=== PATIENT | male | born 1985 | race Caucasian/White ===

== ENCOUNTER 2020-04-14 12:25 | Emergency (ER) | payer OTHER, SELFPAY ==
[2020-04-14 12:26] VITALS: BP 149/92; PULSE 86; RESP 18; TEMP 36.9; O2SAT 97; BMI 33.2
--- NOTE | 2020-04-14 12:40 | HMH.EDGENADL ---
ED Disposition Clinical Impression: Bronchitis Disposition: Home, Self-Care Condition on Discharge: Good Additional Instructions: Take antibiotic as prescribed. Please drink plenty of clear fluids and use Sudafed, decongestant. Return immediately if any recurrent shortness of air, high fever/chills, generalized malaise, or other new concerning symptoms. Prescriptions: Azithromycin [Z-Angel 250mg Tab*] 250 mg PO UD DOSE PK #6 tab Transmission Status: Pending to [id number] Referrals: Ki Alcocer [Primary Care Provider] - - Critical Care Critical Care Time: No Attestation: On 04/14/20, the high probability of a clinically significant, sudden or life threatening deterioration of the following system(s) required my full and direct attention, intervention and personal management. The time I documented below is in addition to time spent performing reported procedures but includes the following listed in this critical care notation. Medical Decision Making - Medical Records Medical records reviewed: Yes: I reviewed the patient's medical records. - Wai Inquiry Pt receiving controlled substance: No Vital Signs: 04/14/20 12:26 04/14/20 13:26 Temperature 98.4 F Temperature Source Oral Pulse Rate [Left Radial] 86 71 Respiratory Rate 18 20 Blood Pressure [Right Arm] 149/92 H 152/77 H Blood Pressure Mean [Right Arm] 111 102 Blood Pressure Source [Right Arm] Automatic Cuff Automatic Cuff Blood Pressure Position [Right Arm] Sitting Supine 02 Sat by Pulse Oximetry 97 98 Oxygen Delivery Method Room Air Room Air Medical Decision Narrative: Patient presents with productive cough. At this time, he is hemodynamically stable with saturations of oxygen on room air close to 100%. No wheezes or rhonchi noted on lung auscultation. X-ray will be obtained to ensure no consolidation/infiltrate representing a bacterial pneumonia. Bronchitis also on the differential. X-ray negative. Still concerned the patient has had 5 or 6 days of a productive cough and he does have underlying tobacco abuse as a risk factor. Patient prescribed azithromycin. Patient instructed to drink plenty of clear fluids and to continue [id number] medications for symptoms. He does need to follow-up with his primary care doctor next week to ensure symptomatic improvement. He will immediately return to our emergency department if any shortness of breath, worsening cough, fever/chills, or other new concerning symptoms. Patient verbalized understanding agrees. Assessment: Bronchitis Disposition: Home with follow-up on antibiotics General Adult HPI - General Stated complaint: possible pneumonia Time Seen by Provider: 04/14/20 13:03 - History of Present Illness HPI narrative: Patient 35-year-old male with history of tobacco abuse presenting with cough. Patient states since Friday has had a productive cough with green sputum. He typically does not have a cough. He also endorses some sinus pressure. Denies any fever/chills. No sensation of shortness of breath. He was swabbed for Covid on Friday but is not sure of the results quite yet. He has not been around any sick people. No recent travel. No hemoptysis. No other symptoms to complain of. He states he has been taking Coricidin, Mucinex without much relief of his congestion. - Related Data Previous Rx's Medication Instructions Recorded Azithromycin [Z-Angel 250mg Tab*] 250 mg PO UD DOSE PK #6 tab 04/14/20 Allergies Allergy/AdvReac Type Severity Reaction Status Date / Time No Known Allergies Allergy Unverified 03/25/17 14:41 [facility] History - Hepatitis A Screen Attestation statement:: This patient has been screened for Hepatitis A risk factors. ROS Obtained: Yes All systems reviewed & no additional complaints Physical Exam - General General appearance: alert, in no apparent distress - Head Head exam: atraumatic, normocephalic - Eye Eye ex
--- NOTE | 2020-04-14 13:05 | XR_ITS ---
PROCEDURE: XR CHEST PORTABLE CLINICAL HISTORY: chest congestion COMPARISON: No exams were available for comparison FINDINGS: The cardiomediastinal silhouette and pulmonary vascularity are within normal limits. The lungs are clear without infiltrates, suspicious nodules, or pleural effusions. No acute bony abnormalities. IMPRESSION: No acute findings. Dictated by: John Rivas MD 04/14/2020 14:18 John Rivas MD in [place] 04/14/2020 14:18
[2020-04-14 13:26] VITALS: BP 152/77; PULSE 71; RESP 20; O2SAT 98
[2020-04-14 15:22] VITALS: BP 125/64; PULSE 87; RESP 16; TEMP 36.6; O2SAT 98
== END 2020-04-14 15:25 | disposition home or self-care (01) ==
PROVIDERS: Emergency Provider Emergency Medicine
DX: J20.9 Acute bronchitis, unspecified (principal); F17.210 Nicotine dependence, cigarettes, uncomplicated
CPT/HCPCS: 71045; 99282

== ENCOUNTER 2021-09-12 16:47 | Emergency (ER) | payer OTHER, SELFPAY ==
[2021-09-12 16:49] VITALS: BP 127/65; PULSE 97; RESP 15; O2SAT 98; BMI 37.3
[2021-09-12 17:21] VITALS: BP 127/65; PULSE 97; RESP 17; TEMP 37.3; O2SAT 95; BMI 38.4
[2021-09-12 17:26] LABS: Apearance,Urine Cloudy (Clear); Color,Urine Dark Yellow (Yellow)
[2021-09-12 17:27] LABS: Bilirubin,Urine Negative (Negative); Blood, Urine 3+ (Negative); Glucose,Urine (UA) Negative (Negative); Ketones,Urine Negative (Negative); Protein,Urine 1+ (Negative); UTC Leukocyte Esterase,Urine 3+ (Negative); Urobilinogen,Urine 0.2 EU/dl (0.2)
[2021-09-12 17:28] LABS: UTC Nitrate,Urine Negative (Negative)
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
[2021-09-12 17:40] VITALS: BP 127/65; PULSE 97; RESP 18; TEMP 36.9; O2SAT 98; BMI 37.3
--- NOTE | 2021-09-12 18:10 | PC.NURSE ---
Dr. Brown at [facility]
--- NOTE | 2021-09-12 18:15 | US_ITS ---
PROCEDURE INFORMATION: Exam: US Scrotum Exam date and time: 09/12/2021 6:30 PM Age: 36 years old Clinical indication: Scrotum pain; Prior surgery; Surgery date: 6+ months; Surgery type: Vasectomy TECHNIQUE: Imaging protocol: Real-time ultrasound of the scrotum and contents with color Doppler and image documentation. COMPARISON: CT ABDOMEN PELVIS WO CON 09/12/2021 5:46 PM Note: A technologist work she has not been received for comparison at this time. If the work sheet is received an addendum comparison report will be issued. FINDINGS: Right testicle: Right testicle measures approximately 4.2 x 2.3 x 3.0 cm diameter. Echogenicity of the testicle is normal. Normal color Doppler flow documented in the testicle. No mass. Left testicle: Left testicle measures approximately 3.9 x 2.2 x 2.8 cm diameter. Normal echogenicity of the testicle. No mass. Normal color Doppler flow documented in the left testicle. Epididymides: Both epididymides measure up to approximately 6 mm thickness at the epididymal heads, within normal limits. No discrete cyst or spermatocele was seen. Tiny cluster of calcifications seen in the upper right scrotum on the earlier CT is not well demonstrated on this ultrasound, possibly corresponding with some bright echoes in the right epididymal head on series 1, image 5. This could be sequela of old healed infection. Scrotum: There are trace bilateral hydroceles. There are prominent bilateral pampiniform plexus veins, suggesting small varicoceles, measuring up to at least 4 mm diameter with Valsalva. Note that the pampiniform plexus veins are also prominent on the earlier CT scan, measuring 5-6 [address]aterally [address] the CT, suggesting at least moderate varicoceles. IMPRESSION: 1. Normal sonographic appearance of the testicles; no findings of testicular tumor or torsion. 2. Small to moderate bilateral varicoceles. 3. Epididymides are within normal limits size. Some tiny calcifications seen in the right scrotum on earlier CT are most likely in the right epididymal head, suggesting old healed infection. 4. Trace bilateral hydroceles.
--- NOTE | 2021-09-12 18:53 | HMH.EDGENADL ---
ED Disposition Clinical Impression: Hematuria Qualifiers: Hematuria type: gross Qualified Code(s): R31.0 - Gross hematuria Disposition: Home, Self-Care Condition on Discharge: Fair Instructions: Blood in Urine Prescriptions: Cefdinir [Omnicef 300mg Capsule] 300 mg PO BID #14 cap Transmission Status: Received by [id number] Referrals: Ki Alcocer [Primary Care Provider] - - Critical Care Critical Care Time: No Attestation: On 09/12/21, the high probability of a clinically significant, sudden or life threatening deterioration of the following system(s) required my full and direct attention, intervention and personal management. The time I documented below is in addition to time spent performing reported procedures but includes the following listed in this critical care notation. Medical Decision Making - Medical Records Medical records reviewed: Yes: I reviewed the patient's medical records. - Wai Inquiry Pt receiving controlled substance: No Wai was queried for this patient: No Vital Signs: 09/12/21 16:49 09/12/21 17:21 09/12/21 17:40 Temperature 99.2 F 98.4 F Temperature Source Oral Oral Pulse Rate [Left Radial] 97 H 97 H 97 H Respiratory Rate 15 17 18 Blood Pressure [Right Arm] 127/65 127/65 127/65 Blood Pressure Mean [Right Arm] 85 85 85 Blood Pressure Source [Right Arm] Automatic Cuff Blood Pressure Position [Right Arm] Sitting 02 Sat by Pulse Oximetry 98 95 98 - Lab Data Lab results reviewed: Yes: I reviewed the patient's lab results. Lab Results 09/12/21 17:25: Urine Color Dark yellow, Urine Appearance Cloudy, Urine pH 7.0, Ur Specific [place] 1.020, Urine Protein 1+, Urine Glucose (UA) Negative, Urine Ketones Negative, Urine Blood 3+, Urine Nitrate Negative, Urine Bilirubin Negative, Urine Urobilinogen 0.2, Ur Leukocyte Esterase 3+ A 09/12/21 18:57: WBC 15.7 H, RBC 4.48 L, Hgb 15.1, Hct 42.6, MCV 95.2 H, MCH 33.8 H, MCHC 35.5 H, RDW 13.4, Plt Count 181, MPV 9.6, Neut % (Auto) 74.1, Lymph % (Auto) 15.7, [place] % (Auto) 7.1, Eos % (Auto) 1.4, Baso % (Auto) 1.8, Neut # (Auto) 11.6 H, Lymph # (Auto) 2.5, [place] # (Auto) 1.1 H, Eos # (Auto) 0.2, Baso # (Auto) 0.3 H, Total Counted 100, Neutrophils % (Manual) 78 H, Lymphocytes % (Manual) 19, Monocytes % (Manual) 2, Eosinophils % (Manual) 1, Platelet Estimate Normal, RBC Morphology Normal 09/12/21 18:57: Sodium 140, Potassium 3.8, Chloride 106, Total Protein 7.2, Albumin 4.5, Globulin 2.7, Albumin/Globulin Ratio 1.7 09/12/21 19:00: SARS-CoV-2 (PCR) Not detected, Influenza A Untype (PCR) Not detected, Influenza Type B (PCR) Not detected Result diagrams: 09/12/21 18:57 09/12/21 18:57 Orders (Tests/Meds): ED MEDICATIONS Generic Name Dose Route Start Last Admin Trade Name Freq PRN Reason Stop Dose Admin Ceftriaxone Sodium 1 gm/ 50 mls @ 100 mls/hr 09/12/21 19:00 09/12/21 19:00 Sodium Chloride IV 09/26/21 18:59 100 mls/hr Q24H DILIA Administration Discontinued Medications Generic Name Dose Route Start Last Admin Trade Name Freq PRN Reason Stop Dose Admin Morphine Sulfate 4 mg 09/12/21 18:18 09/12/21 19:01 Morphine 4mg/Ml Syringe IV 09/12/21 18:19 Not Given ONCE ONE Ondansetron HCl 4 mg 09/12/21 18:19 09/12/21 19:01 Ondansetron 4mg/2ml Vial IV 09/12/21 18:20 Not Given ONCE ONE ORDERS Category Date Time Status Comprehensive Metabolic Panel Stat Lab 09/12/21 18:57 Results Urine Culture Stat Micro 09/12/21 17:06 Received Medical Decision Narrative: Is a 36-year-old male presenting to the emergency department chief complaint of hematuria, urination, testicular pain. Differential considered for this patient includes testicular torsion, urinary tract infection, nephrolithiasis, epididymitis, STI, among others. Given this plan to order CBC, CMP to assess for any ACOSTA or obstruction, UA, urine culture, as well as testing for gonorrhea and chlamydia, Noncon and an ultrasound. Ultraso
[2021-09-12 19:04] LABS: Basophils # 0.3 K/mm3 (0-0.2); Basophils % 1.8 % (0.1-2.0); Eosinophils # 0.2 K/mm3 (0.0-0.4); Eosinophils % 1.4 % (0.1-12.0); Hematocrit 42.6 % (42.0-52.0); Hemoglobin 15.1 g/dL (14.1-18.0); Lymphocytes # 2.5 K/mm3 (0.7-4.5); Lymphocytes % 15.7 % (10-50); Mean Corpuscular HGB Conc 35.5 g/dL (31.8-35.4); Mean Corpuscular Hemoglobin 33.8 pg (27.0-31.2); Mean Corpuscular Volume 95.2 fl (80-94); Mean Platelet Volume 9.6 fl (7.4-10.4); Monocytes # 1.1 K/mm3 (0.1-1.0); Monocytes % 7.1 % (1.7-9.3); Neutrophils # 11.6 K/mm3 (1.8-7.8); Neutrophils % 74.1 % (37.0-80.0); Platelet Count 181 K/mm3 (142-424); Red Blood Count 4.48 M/mm3 (4.60-6.20); Red Cell Distribution Width 13.4 % (11.5-17.5); White Blood Count 15.7 K/mm3 (4.8-10.8)
[2021-09-12 19:05] LABS: MANUAL DIFFERENTIAL MANUAL DIFFERENTIAL (MANUAL DIFF)
[2021-09-12 19:05] LABS: Coronavirus 19, PCR Not Detected (NotDetected); Influenza A, PCR Not Detected (NotDetected); Influenza B, PCR Not Detected (NotDetected)
[2021-09-12 19:11] LABS: Chloride 106 mmol/L (98-107); Sodium 140 mmol/L (136-145)
[2021-09-12 19:12] LABS: Potassium 3.8 mmoL/L (3.5-5.1)
[2021-09-12 19:14] LABS: Albumin Level 4.5 g/dl (3.5-5.0); Albumin/Globulin Ratio 1.7 (1.1-1.8); Globulin 2.7 g/dL (1.3-3.2); Total Protein,Serum 7.2 g/dl (6.3-8.2)
[2021-09-12 19:40] LABS: Eosinophils % 1 % (0-3); Lymphocytes % 19 % (10-50); Monocytes % 2 % (2-9); Neutrophils % 78 % (42-76); Platelet Estimate Normal; RBC Morphology Normal; Total Cells Counted 100
[2021-09-12 19:57] LABS: Anion Gap 12.8 mEq/L (5-15); Blood Urea Nitrogen 10 mg/dl (9-20); Carbon Dioxide 25 mmol/L (22.0-30.0)
[2021-09-12 19:58] LABS: Alanine Aminotransferase 51 U/L (12-78); Alkaline Phosphatase 55 U/L (38-126); Aspartate Amino Transferase 45 U/L (17-59); Bilirubin,Total 0.9 mg/dl (0.2-1.3); Calcium 9.9 mg/dl (8.4-10.2); Creatinine Clearance Estimated 209 mL/min (50-200); Estimated Glomerular Filt Rate 108 ml/min (>60); GFR (African American) 131 ML/MIN (>60); Glucose 78 mg/dl (74-100)
[2021-09-12 20:28] VITALS: BP 103/82; PULSE 89; RESP 16; TEMP 36.6; O2SAT 98
[2021-09-14 21:07] LABS: Neisseria gonorrhoeae, NAA Negative (Negative)
== END 2021-09-12 20:37 | disposition home or self-care (01) ==
LOC: UTC 17:33 → ER 17:33
PROVIDERS: Nurse Practitioner Family; Emergency Provider Emergency Medicine
DX: R31.0 Gross hematuria (principal); N39.0 Urinary tract infection, site not specified; B96.20 Unspecified Escherichia coli [E. coli] as the cause of diseases classified elsewhere; N43.3 Hydrocele, unspecified; D72.829 Elevated white blood cell count, unspecified
CPT/HCPCS: 74176; 76870; 80053; 81003; 85007; 85025; 87086; 87088; 87186; 87491; 87591; 96365; 99284; C9803; J0696; U0003; U0005

== ENCOUNTER → 2022-10-16 12:34 | Outpatient (CLI) | payer OTHER, SELFPAY ==
--- NOTE | 2022-10-16 12:38 | XR_ITS ---
FINAL REPORT CLINICAL HISTORY: SOA COMPARISON: 04/24/2020 FINDINGS: Two views of the chest were obtained. The heart size and pulmonary vascularity are within normal limits. The mediastinum is normal. No acute pulmonary abnormality is identified. There is no pneumothorax. The bony thorax is intact. IMPRESSION: No active cardiopulmonary disease. Reviewed, Interpreted and Dictated by London Lange III, MD Transcribed by Marii Cherry Authenticated and . [facility]
== END ==
PROVIDERS: PCP Chiropractor; Visit Provider Chiropractor
DX: R06.02 Shortness of breath (principal)
CPT/HCPCS: 71046; 94060

== ENCOUNTER 2023-05-21 17:10 | Emergency (ER) | payer SELFPAY ==
[2023-05-21 17:11] VITALS: BP 149/93; PULSE 100; RESP 18; TEMP 36.9; O2SAT 97; BMI 36.9
--- NOTE | 2023-05-21 17:21 | XR_ITS ---
PROCEDURE INFORMATION: Exam: XR Chest Exam date and time: 05/21/2023 5:18 PM Age: 38 years old Clinical indication: Cough TECHNIQUE: Imaging protocol: Radiologic exam of the chest. Views: 2 views. COMPARISON: CR XR CHEST 2V 10/16/2022 12:41 PM FINDINGS: Lungs: No consolidation. Pleural spaces: No pleural effusion. No pneumothorax. Heart/Mediastinum: No cardiomegaly. Bones/joints: Unremarkable. IMPRESSION: No acute pulmonary findings.
--- NOTE | 2023-05-21 17:28 | PC.NURSE ---
PT TO XR
[2023-05-21 17:33] LABS: Coronavirus 19, PCR Not Detected (NotDetected); Influenza A, PCR Not Detected (NotDetected)
--- NOTE | 2023-05-21 17:50 | PC.NURSE ---
DR RODRIGUEZ AT BEDSIDE
[2023-05-21 18:16] LABS: Influenza B, PCR Detected (NotDetected)
[2023-05-21] MEDS: predniSONE 20MG TAB 40 MG PO (18:19)
[2023-05-21] MEDS: IPRATROPIUM/ALBUTEROL 3 ML NEB 6 ML IH (18:19)
[2023-05-21] MEDS: AMOXICILLIN/CLAVULANATE POTASSIUM 875/125MG TABLET 1 EACH PO (18:19)
--- NOTE | 2023-05-21 18:21 | ED_ITS ---
Discharge Plan Disposition Patient Disposition: Home, Self-Care Prescriptions Prescriptions: New prednisone 20 mg tablet 40 mg PO DAILY 5 Days Qty: 10 0RF amoxicillin-pot clavulanate 875-125 mg tablet 1 tab PO BID 7 Days Qty: 14 0RF No Action azithromycin 250 MG tablet 250 mg PO UD DOSE PK Qty: 6 0RF Rx Instructions: Take two (2) tablets today, then one (1) tablet days #2 thru #5 cefdinir 300 MG capsule 300 mg PO BID Qty: 14 0RF Referrals Follow up/Referrals: Provider,Referral, MD [Primary Care Provider] - See instructions Activity Restrictions/Add. Instructions Additional Instructions/Restrictions: Call your family doctor to establish care for this visit to the emergency department and schedule follow-up within 48 hours to ensure improvement. If you have any worsening of your condition or any other concerning signs or symptoms, return to the emergency department or your primary care doctor for further evaluation. Clinical Impressions Clinical Impression: Influenza B, Acute exacerbation of chronic obstructive pulmonary disease Instructions Patient Instructions: DI for Influenza -- Adult Discharge ED Provider: Leandro Saenz General Adult HPI General Chief complaint: Upper Respiratory Infection Stated complaint: SOA, allison Time Seen by Provider: 05/21/23 17:14 Mode of Arrival: Ambulatory Source of Information: Patient Limitations: No Limitations Description of Symptoms (Recalled from ER Triage Doc. by RN): PT C/O COUGH, FEVER, CONGESTION AND BODYACHES THAT STARTED ON FRIDAY History of Present Illness HPI narrative: 38-year-old male extensive smoking history with early stage COPD presenting with cough, fever, congestion, body aches. Started 5 days prior to this visit. Have gotten worse. Cough is productive of brown sputum, fevers have not been present since 3 days prior to this visit. Denies nausea or vomiting, or any other concerns at this time. Related Data Previous Rx's Medication Instructions Recorded azithromycin 250 mg tablet 250 mg PO UD DOSE PK #6 tabs 04/14/20 cefdinir 300 mg capsule 300 mg PO BID #14 caps 09/12/21 amoxicillin 875 mg-potassium 1 tab PO BID 7 days #14 tabs 05/21/23 clavulanate 125 mg tablet prednisone 20 mg tablet 40 mg PO DAILY 5 days #10 tabs 05/21/23 Allergies Allergy/AdvReac Type Severity Reaction Status Date / Time No Known Allergies Allergy Verified 09/12/21 17:24 [facility] Disclaimer: The information contained in this section may have been updated after the patient was seen, as this information can be updated by other users. Social History Smoking Status: Current every day smoker alcohol intake: never current occupational status: unemployed Travel in the last 8 weeks: None ROS Obtained: Yes All systems reviewed & no additional complaints except as documented Physical Exam General General appearance: alert and in no apparent distress Head Head exam: atraumatic and normocephalic Eye Eye exam: Present normal appearance, PERRL and EOMI ENT ENT exam: Present mucous membranes moist Neck Neck exam: Present normal inspection, full ROM and trachea midline Respiratory Respiratory exam: Present wheezes (Diffuse bilateral); Absent respiratory distress, stridor, accessory muscle use or prolonged expiratory phase Cardiovascular Cardiovascular exam: Present regular rate and normal rhythm Abdominal Exam Abdominal exam: Present soft; Absent distention, tenderness, guarding, rebound or rigidity Extremities Exam Extremities exam: Absent edema Neurological Exam Neurological exam: Present alert, oriented X3, CN II-XII intact and normal gait; Absent motor sensory deficit Skin Skin exam: Present warm and dry; Absent diaphoresis or erythema Medical Decision Making Medical Records Medical records reviewed: Yes I reviewed the patient's medical records. Wai Inquiry Pt receiving controlled substance: No Wai was queried for this patient: No Vital Signs: 05/21/23 17:11 05/21/23 18:37 05/21/23 18:42 Temperature 98.5 F 98.0 F Temperature Source Oral Oral Pulse Rate 112 H 85 Pulse Rate [Radial] 100 H Respiratory Rate 18 18 Blood Pressure 130/75 130/75 Blood Pressure [Left Arm] 149/93 H Blood Pressure Mean [Left Arm] 111 Blood Pressure Source Automatic Cuff Blood Pressure Source [Left Arm] Automatic Cuff Blood Pressure Position Sitting Blood Pressure Position [Left Arm] Sitting 02 Sat by Pulse Oximetry 97 96 Oxygen Delivery Method Room Air Room Air Room Air Lab Data Lab Results 05/21/23 17:15: SARS-CoV-2 (PCR) Not detected, Influenza A Untype (PCR) Not detected, Influenza Type B (PCR) Detected A Orders (Tests/Meds): ED MEDICATIONS Discontinued Medications Generic Name Dose Route Start Last Admin Trade Name Freq PRN Reason Stop Dose Admin Albuterol/Ipratropium 6 ml 05/21/23 17:55 05/21/23 18:19 Ipratropium/Albuterol 3 Ml Neb IH 05/21/23 17:56 6 ml ONCE ONE Administration Amoxicillin/Clavulanate Potassium 1 each 05/21/23 17:57 05/21/23 18:19 Amoxicillin/Clavulanate Potassium 875/125mg Tablet PO 05/21/23 17:58 1 each ONCE ONE Administration Prednisone 40 mg 05/21/23 17:55 05/21/23 18:19 Prednisone 20mg Tab PO 05/21/23 17:56 40 mg ONCE ONE Administration ORDERS Category Date Time Status CXR 2 view (NOT portable) [XR chest 2V] Stat Exams 05/21/23 17:21 Completed Rapid PCR Covid and Flu A/B Stat Lab 05/21/23 17:15 Completed Medical Decision Narrative: 38-year-old male extensive smoking history with early stage COPD presenting with cough, fever, congestion, body aches. Started 5 days prior to this visit. Have gotten worse. Cough is productive of brown sputum, fevers have not been present since 3 days prior to this visit. Denies nausea or vomiting, or any other concerns at this time. History was obtained via conversation with patient. On arrival, patient hemodynamically stable, alert, oriented x4, appropriate, GCS 15, moving all extremities spontaneously, pupils equal and reactive to light. Full physical exam performed and significant for diffuse bilateral wheezing. No focal breath sounds. Patient saturating appropriately, not hypoxemic. No increased work of breathing Differential includes pneumonia, bronchitis, among others. Patient was given DuoNeb, prednisone for symptomatic management and correction of underlying abnormalities. Workup independently interpreted and significant for influenza B. No acute cardiopulmonary or other intrathoracic disease acutely see radiology read for full review of final results. On reevaluation, patient feeling much better. Given patient presentation, workup, history, this most likely represents influenza B with likely undiagnosed mild COPD exacerbation. Because patient at baseline without signs or symptoms of clinical decompensation, deemed appropriate for discharge. Results were relayed to patient who voiced understanding and were agreeable to outpatient management and follow up. At the time of discharge the patient was hemodynamically stable, tolerating PO, and mobilizing appropriately. Critical Care Critical Care Time Critical Care Time: No
[2023-05-21 18:37] VITALS: BP 130/75; PULSE 112; O2SAT 96
[2023-05-21 18:42] VITALS: BP 130/75; PULSE 85; RESP 18; TEMP 36.7; O2SAT 95
== END 2023-05-21 18:51 | disposition home or self-care (01) ==
PROVIDERS: Emergency Provider Emergency Medicine
DX: J10.1 Influenza due to other identified influenza virus with other respiratory manifestations; J44.1 Chronic obstructive pulmonary disease with (acute) exacerbation; R50.9 Fever, unspecified; M79.18 Myalgia, other site; F17.210 Nicotine dependence, cigarettes, uncomplicated; R05.8 Other specified cough
CPT/HCPCS: 71046; 87636; 99283

== ENCOUNTER 2023-06-08 14:10 | Observation (INO) | payer OTHER, SELFPAY ==
[2023-06-08] VITALS (8 sets, daily range): BP systolic 111–134; BP diastolic 61–99; PULSE 93–115; RESP 16–19; TEMP 36.8–36.9; O2SAT 94–97; BMI 37.3; BMI 37.8
--- NOTE | 2023-06-08 14:13 | ED_ITS ---
I was consulted by the EDWIN, and we discussed the complexity of the problems being addressed. I approved the treatment and management plan for this patient's care in the emergency department, thus performing a substantive portion of the medical decision making. Mathew Adrian MD 38-year-old male past medical history of previous provoked venous thrombosis of the lower extremity from fracture. Discontinued anticoagulation with recently diagnosed DVT. Workup remarkable for multiple bilateral segmental and subsegmental PEs, troponin undetectable initially, right heart strain on CT imaging ratio which will be better evaluated by echocardiography. Lovenox administered. Patient admitted in stable condition. Discharge Plan Disposition Patient Disposition: Admitted Condition: Serious Chief Complaint: Headache Prescriptions Prescriptions: No Action azithromycin 250 MG tablet 250 mg PO UD DOSE PK Qty: 6 0RF Rx Instructions: Take two (2) tablets today, then one (1) tablet days #2 thru #5 cefdinir 300 MG capsule 300 mg PO BID Qty: 14 0RF prednisone 20 mg tablet 40 mg PO DAILY 5 Days Qty: 10 0RF amoxicillin-pot clavulanate 875-125 mg tablet 1 tab PO BID 7 Days Qty: 14 0RF Referrals Follow up/Referrals: Provider,Referral, [Primary Care Provider] - See instructions Clinical Impressions Clinical Impression: Multiple pulmonary emboli Discharge ED Provider: Leandro Saenz General Adult HPI <MARK Matthews - Last Filed: 06/08/23 16:09> General Chief complaint: Headache Stated complaint: blood clots in legs, headache, SOA Time Seen by Provider: 06/08/23 14:13 History of Present Illness HPI narrative: Patient is a 38-year-old male presents to the emergency department for evaluation of headache shortness of breath. Patient was diagnosed proximately 2 weeks ago with a DVT in the left lower extremity. His history is confusing as he states that he was originally diagnosed with bilateral lower extremity DVTs but only has 1 in the left lower extremity now. Patient was started on reportedly Eliquis however stopped it 2 days ago because it was making he is headache worse. Patient woke up today with significant headache. He was very dyspneic even on light exertion. He denies fever nausea vomiting chest pain hemoptysis hematochezia melena hematemesis. Patient states that he is left lower extremity hurts more today no has been wearing compression stockings. Patient is unvaccinated for flu and COVID. Related Data Previous Rx's Medication Instructions Recorded azithromycin 250 mg tablet 250 mg PO UD DOSE PK #6 tabs 04/14/20 cefdinir 300 mg capsule 300 mg PO BID #14 caps 09/12/21 amoxicillin 875 mg-potassium 1 tab PO BID 7 days #14 tabs 05/21/23 clavulanate 125 mg tablet prednisone 20 mg tablet 40 mg PO DAILY 5 days #10 tabs 05/21/23 Allergies Allergy/AdvReac Type Severity Reaction Status Date / Time No Known Allergies Allergy Verified 06/08/23 14:30 PFSH <MARK Matthews - Last Filed: 06/08/23 16:09> [facility] Disclaimer: The information contained in this section may have been updated after the patient was seen, as this information can be updated by other users. Social History (Updated 05/21/23 @ 18:50 by Leandro Saenz MD) Smoking Status: Never smoker alcohol intake: never current occupational status: unemployed Travel in the last 8 weeks: None <MARK Matthews - Last Filed: 06/08/23 16:09> ROS Obtained: Yes Systems reviewed as appropriate & no additional complaints except as documented Physical Exam <MARK Matthews - Last Filed: 06/08/23 16:09> General General appearance: alert and in no apparent distress Head Head exam: atraumatic and normal inspection Eye Eye exam: Present normal appearance, PERRL and EOMI ENT ENT exam: Present normal exam, normal oropharynx and mucous membranes moist Neck Neck exam: Present normal inspection and full ROM; Absent lymphadenopathy Chest Chest inspection: Present normal inspection and symmetric chest wall rise Respiratory Respiratory exam: Present normal lung sounds bilaterally; Absent respiratory distress, wheezes or accessory muscle use Cardiovascular Cardiovascular exam: Present normal rhythm, tachycardia, normal heart sounds, +S1 and +S2 Abdominal Exam Abdominal exam: Present soft and normal bowel sounds; Absent tenderness, guarding or rebound Extremities Exam Extremities exam: Present normal inspection, full ROM and other (Patient has no palpable cords posteriorly patient has negative Homans' sign. Patient is tender to palpation of the left lower extremity laterally but not posteriorly. Patient neurovascularly intact distally in bilateral lower extremities) Neurological Exam Neurological exam: Present alert, oriented X3 and CN II-XII intact Psychiatric Psychiatric exam: Present anxious Skin Skin exam: Present warm, dry and normal color Lymphatic Lymphatic Findings: no adenopathy Medical Decision Making <MARK Matthews - Last Filed: 06/08/23 16:09> Medical Records Medical records reviewed: Yes I reviewed the patient's medical records. Wai Inquiry Pt receiving controlled substance: No Vital Signs: 06/08/23 14:19 06/08/23 14:18 06/08/23 14:30 Temperature 98.4 F Temperature Source Oral Pulse Rate 110 H 105 H Pulse Rate [Left] 115 H Respiratory Rate 18 Blood Pressure 129/78 Blood Pressure [Right Arm] 134/99 H Blood Pressure Mean [Right Arm] 110 Blood Pressure Source [Right Arm] Automatic Cuff Blood Pressure Position [Right Arm] Sitting 02 Sat by Pulse Oximetry 97 97 95 Oxygen Delivery Method Room Air Room Air Lab Data Lab results reviewed: Yes I reviewed the patient's lab results. Lab Results 06/08/23 14:20: WBC 8.7, RBC 4.73, Hgb 15.5, Hct 45.3, MCV 95.8 H, MCH 32.8 H, MCHC 34.2, RDW 13.2, Plt Count 207, MPV 9.0, Neut % (Auto) 57.2, Lymph % (Auto) 31.1, [place] % (Auto) 8.5, Eos % (Auto) 2.3, Baso % (Auto) 0.9, Neut # (Auto) 5.0, Lymph # (Auto) 2.7, [place] # (Auto) 0.7, Eos # (Auto) 0.2, Baso # (Auto) 0.1, PT 10.5, INR 0.97, D-Dimer 1.69 H, Sodium 139, Potassium 4.0, Chloride 106, Carbon Dioxide 23, Anion Gap 14.0, BUN 13, Creatinine 0.80, Estimated Creat Clear 205, Estimated GFR 107, Est GFR ( Amer) 130, Glucose 150 H, Calcium 9.2, Total Bilirubin 0.4, AST 34, ALT 44, Alkaline Phosphatase 68, Troponin I < 0.01, Total Protein 7.4, Albumin 4.2, Globulin 3.2, Albumin/Globulin Ratio 1.3 06/08/23 14:22: SARS-CoV-2 (PCR) Not detected, Influenza A Untype (PCR) Not detected, Influenza Type B (PCR) Not detected 06/08/23 14:45: Lactate 1.5 06/08/23 14:20 06/08/23 14:20 Orders (Tests/Meds): ED MEDICATIONS Generic Name Dose Route Start Last Admin Trade Name Freq PRN Reason Stop Dose Admin Enoxaparin Sodium 120 mg 06/09/23 03:00 Enoxaparin 120mg/0.8ml Syringe 1 mg/kg (120 mg) 07/09/23 02:59 SQ Q12H DILIA Sodium Chloride 10 ml 06/08/23 15:12 06/08/23 15:15 Sodium Chloride 0.9% 10ml Syr (Rad Only) IV 07/08/23 15:11 10 ml NEEDED PRN Administration Maintain IV Site Discontinued Medications Generic Name Dose Route Start Last Admin Trade Name Freq PRN Reason Stop Dose Admin Acetaminophen 1,000 mg 06/08/23 14:25 06/08/23 14:39 Acetaminophen 1,000mg/100ml Vial IV 06/08/23 14:26 1,000 mg ONCE ONE Administration Enoxaparin Sodium 120 mg 06/08/23 15:30 06/08/23 15:38 Enoxaparin 100mg/Ml Syringe 1 mg/kg (120 mg) 07/08/23 15:29 120 mg SQ Administration Q12H DILIA Lactated Ringer's 1,000 mls @ 999 mls/hr 06/08/23 14:25 06/08/23 14:38 Lactated Ringer's 1000 Ml Bag IV 06/08/23 15:25 999 mls/hr .Q1H1M ONE Administration Iopamidol 75 ml 06/08/23 15:12 06/08/23 15:15 Iopamidol-370 (76%);100ml Bottle IV 06/08/23 15:13 75 ml ONCE ONE Administration Ketorolac Tromethamine 15 mg 06/08/23 14:25 06/08/23 14:39 Ketorolac 30mg/Ml Vial IV 06/08/23 14:26 15 mg ONCE ONE Administration Sodium Chloride 50 ml 06/08/23 15:12 06/08/23 15:13 0.9 % Sodium Chloride 50 Ml Vial IV 06/08/23 15:13 50 ml ONCE ONE Administration ORDERS Category Date Time Status CT angio chest PE protocol Stat Cat Scan 06/08/23 14:56 Completed POCUS Point of Care (ER Only) Stat Exams 06/08/23 14:19 Completed CBC w/Auto Diff [Complete Blood Count Auto Diff] Stat Lab 06/08/23 14:20 Completed CMP [Comprehensive Metabolic Panel] Stat Lab 06/08/23 14:20 Completed D-Dimer Stat Lab 06/08/23 14:20 Completed INR [Prothrombin Time INR] Stat Lab 06/08/23 14:20 Completed Lactic Acid Stat Lab 06/08/23 14:45 Completed Rapid PCR Covid and Flu A/B Stat Lab 06/08/23 14:22 Completed Trop I [Troponin I] Stat Lab 06/08/23 14:20 Completed Troponin I Q3H Lab 06/08/23 17:30 Ordered Troponin I Q3H Lab 06/08/23 20:30 Ordered Medical Decision Narrative: In summary patient is a 38-year-old male who presents to the emergency department for evaluation of headache and shortness of breath with known DVT. Patient is normotensive tachycardic upon arrival, and afebrile. Physical exam is nonfocal with normal breath sounds without adventitious sounds. Neurologic exam is nonfocal with no deficits. Patient is tachycardic without any murmurs gallops rubs or thrills. Patient has no palpable cords negative Homans' sign neurovascular intact distally bilateral lower extremities however he is tender to palpation at the lateral aspect of his left lower extremity. Differential diagnosis includes PE, thrombus propagation, migraine headache, viral infection etc. Initial workup will be conducted with hematologic labs CT PE protocol respiratory swabs. Initial interventions include crystalloid bolus Toradol acetaminophen. Initial workup reviewed by me that shows normal troponin normal white count negative respiratory swabs EKG shows sinus tachycardia and EKG shows sinus EKG at the bedside on the monitor CTA informally interpreted by myself shows what appears to be bilateral segmental subsegmental filling deficits. Upon repeat evaluation patient has had complete resolution of his headache with Toradol and acetaminophen and his tachycardia was fluid responsive as well. Given this I discussed patient case management with Dr. Serrato of cardiology. Plan is to initiate weight-based dose Lovenox twice daily and he will be admitted for further evaluation and care by the hospitalist service <Mathew Adrian MD - Last Filed: 06/08/23 15:30> Vital Signs: 06/08/23 14:19 06/08/23 14:18 06/08/23 14:30 Temperature 98.4 F Temperature Source Oral Pulse Rate 110 H 105 H Pulse Rate [Left] 115 H Respiratory Rate 18 Blood Pressure 129/78 Blood Pressure [Right Arm] 134/99 H Blood Pressure Mean [Right Arm] 110 Blood Pressure Source [Right Arm] Automatic Cuff Blood Pressure Position [Right Arm] Sitting 02 Sat by Pulse Oximetry 97 97 95 Oxygen Delivery Method Room Air Room Air Lab Data Lab Results 06/08/23 14:20: WBC 8.7, RBC 4.73, Hgb 15.5, Hct 45.3, MCV 95.8 H, MCH 32.8 H, MCHC 34.2, RDW 13.2, Plt Count 207, MPV 9.0, Neut % (Auto) 57.2, Lymph % (Auto) 31.1, [place] % (Auto) 8.5, Eos % (Auto) 2.3, Baso % (Auto) 0.9, Neut # (Auto) 5.0, Lymph # (Auto) 2.7, [place] # (Auto) 0.7, Eos # (Auto) 0.2, Baso # (Auto) 0.1, PT 10.5, INR 0.97, D-Dimer 1.69 H, Sodium 139, Potassium 4.0, Chloride 106, Carbon Dioxide 23, Anion Gap 14.0, BUN 13, Creatinine 0.80, Estimated Creat Clear 205, Estimated GFR 107, Est GFR ( Amer) 130, Glucose 150 H, Calcium 9.2, Total Bilirubin 0.4, AST 34, ALT 44, Alkaline Phosphatase 68, Troponin I < 0.01, Total Protein 7.4, Albumin 4.2, Globulin 3.2, Albumin/Globulin Ratio 1.3 06/08/23 14:22: SARS-CoV-2 (PCR) Not detected, Influenza A Untype (PCR) Not detected, Influenza Type B (PCR) Not detected 06/08/23 14:45: Lactate 1.5 Orders (Tests/Meds): ED MEDICATIONS Generic Name Dose Route Start Last Admin Trade Name Freq PRN Reason Stop Dose Admin Enoxaparin Sodium 120 mg 06/09/23 03:00 Enoxaparin 120mg/0.8ml Syringe 1 mg/kg (120 mg) 07/09/23 02:59 SQ Q12H DILIA Sodium Chloride 10 ml 06/08/23 15:12 06/08/23 15:15 Sodium Chloride 0.9% 10ml Syr (Rad Only) IV 07/08/23 15:11 10 ml NEEDED PRN Administration Maintain IV Site Discontinued Medications Generic Name Dose Route Start Last Admin Trade Name Freq PRN Reason Stop Dose Admin Acetaminophen 1,000 mg 06/08/23 14:25 06/08/23 14:39 Acetaminophen 1,000mg/100ml Vial IV 06/08/23 14:26 1,000 mg ONCE ONE Administration Enoxaparin Sodium 120 mg 06/08/23 15:30 06/08/23 15:38 Enoxaparin 100mg/Ml Syringe 1 mg/kg (120 mg) 07/08/23 15:29 120 mg SQ Administration Q12H DILIA Lactated Ringer's 1,000 mls @ 999 mls/hr 06/08/23 14:25 06/08/23 14:38 Lactated Ringer's 1000 Ml Bag IV 06/08/23 15:25 999 mls/hr .Q1H1M ONE Administration Iopamidol 75 ml 06/08/23 15:12 06/08/23 15:15 Iopamidol-370 (76%);100ml Bottle IV 06/08/23 15:13 75 ml ONCE ONE Administration Ketorolac Tromethamine 15 mg 06/08/23 14:25 06/08/23 14:39 Ketorolac 30mg/Ml Vial IV 06/08/23 14:26 15 mg ONCE ONE Administration Sodium Chloride 50 ml 06/08/23 15:12 06/08/23 15:13 0.9 % Sodium Chloride 50 Ml Vial IV 06/08/23 15:13 50 ml ONCE ONE Administration ORDERS Category Date Time Status CT angio chest PE protocol Stat Cat Scan 06/08/23 14:56 Completed POCUS Point of Care (ER Only) Stat Exams 06/08/23 14:19 Completed CBC w/Auto Diff [Complete Blood Count Auto Diff] Stat Lab 06/08/23 14:20 Comp leted CMP [Comprehensive Metabolic Panel] Stat Lab 06/08/23 14:20 Completed D-Dimer Stat Lab 06/08/23 14:20 Completed INR [Prothrombin Time INR] Stat Lab 06/08/23 14:20 Completed Lactic Acid Stat Lab 06/08/23 14:45 Completed Rapid PCR Covid and Flu A/B Stat Lab 06/08/23 14:22 Completed Trop I [Troponin I] Stat Lab 06/08/23 14:20 Completed Troponin I Q3H Lab 06/08/23 17:30 Ordered Troponin I Q3H Lab 06/08/23 20:30 Ordered ECG Data Tracing #1: Independently interpreted by me, rate is 106, rhythm is regular, axis is normal, no ST elevation in anatomical contiguous leads, QTc 390 Critical Care <MARK Matthews - Last Filed: 06/08/23 16:09> Critical Care Time Critical Care Time: Yes Attestation: On 06/08/23, the high probability of a clinically significant, sudden or life threatening deterioration of the following system(s) required my full and direct attention, intervention and personal management cardiopulmonary. The time I documented below is in addition to time spent performing reported procedures but includes the following listed in this critical care notation. Total Time Total Critical Care Time: 30
[2023-06-08 14:38] LABS: Alanine Aminotransferase 44 U/L (12-78); Albumin Level 4.2 g/dl (3.5-5.0); Albumin/Globulin Ratio 1.3 (1.1-1.8); Alkaline Phosphatase 68 U/L (38-126); Aspartate Amino Transferase 34 U/L (17-59); Bilirubin,Total 0.4 mg/dl (0.2-1.3); Blood Urea Nitrogen 13 mg/dl (9-20); Calcium 9.2 mg/dl (8.4-10.2); Carbon Dioxide 23 mmol/L (22.0-30.0); Chloride 106 mmol/L (98-107); Creatinine Clearance Estimated 205 mL/min (50-200); Estimated Glomerular Filt Rate 107 ml/min (>60); GFR (African American) 130 ML/MIN (>60); Globulin 3.2 g/dL (1.3-3.2); Glucose 150 mg/dl (74-100); Sodium 139 mmol/L (136-145); Total Protein,Serum 7.4 g/dl (6.3-8.2)
[2023-06-08] MEDS: LACTATED RINGERS 1000ML 1,000 ML 999 ML IV (14:38)
[2023-06-08 14:39] LABS: Basophils # 0.1 K/mm3 (0-0.2); Basophils % 0.9 % (0.1-2.0); Eosinophils # 0.2 K/mm3 (0.0-0.4); Eosinophils % 2.3 % (0.1-12.0); Hematocrit 45.3 % (42.0-52.0); Hemoglobin 15.5 g/dL (14.1-18.0); Lymphocytes # 2.7 K/mm3 (0.7-4.5); Lymphocytes % 31.1 % (10-50); Mean Corpuscular HGB Conc 34.2 g/dL (31.8-35.4); Mean Corpuscular Hemoglobin 32.8 pg (27.0-31.2); Mean Corpuscular Volume 95.8 fl (80-94); Monocytes # 0.7 K/mm3 (0.1-1.0); Monocytes % 8.5 % (1.7-9.3); Neutrophils % 57.2 % (37.0-80.0); Platelet Count 207 K/mm3 (142-424); Red Blood Count 4.73 M/mm3 (4.60-6.20); Red Cell Distribution Width 13.2 % (11.5-17.5); White Blood Count 8.7 K/mm3 (4.8-10.8)
[2023-06-08] MEDS: KETOROLAC 30MG/ML VIAL 15 MG IV (14:39)
[2023-06-08] MEDS: ACETAMINOPHEN 1,000MG/100ML VIAL 1000 MG IV (14:39)
--- NOTE | 2023-06-08 14:40 | ECG_ITS ---
APPROVED REPORT Exam: Resting ECG HR:106 bpm ECG Measurements Heart Rate 106 AXES NM 148 P 15 QRSd 73 QRS -9 QT 328 T 34 QTc 390 Conclusion SINUS TACHYCARDIA ABNORMAL RHYTHM ECG UNCONFIRMED REPORT Electronically signed by : CRYSTAL FLORES, 06/10/2023 10:49:18
[2023-06-08 14:45] LABS: INR 0.97 (0.9-1.1); Prothrombin Time 10.5 seconds (10.1-12.5)
[2023-06-08 14:49] LABS: Coronavirus 19, PCR Not Detected (NotDetected); Influenza A, PCR Not Detected (NotDetected); Influenza B, PCR Not Detected (NotDetected)
--- NOTE | 2023-06-08 14:56 | CT_ITS ---
PROCEDURE INFORMATION: Exam: CTA Chest With Contrast Exam date and time: 06/08/2023 3:08 PM Age: 38 years old Clinical indication: Tachypnea; Additional info: Tachycardia, SOA, ddvts not on ac TECHNIQUE: Imaging protocol: Computed tomographic angiography of the chest with contrast. Exam focused on the arteries. 3D rendering (Not supervised by radiologist): MIP and/or 3D reconstructed images were created by the technologist. Radiation optimization: All CT scans at this facility use at least one of these dose optimization techniques: automated exposure control; mA and/or kV adjustment per patient size (includes targeted exams where dose is matched to clinical indication); or iterative reconstruction. Contrast material: ISOVUE; Contrast volume: 75 ml; Contrast route: INTRAVENOUS (IV); COMPARISON: CR XR CHEST 2V 05/21/2023 5:18 PM FINDINGS: Pulmonary arteries: Multiple (the on the order of 10-15) pulmonary emboli scattered throughout the bilateral segmental and subsegmental pulmonary arteries, lower lobe predominant. Aorta: No evidence of thoracic aortic aneurysm or dissection. Lungs: No evidence of acute airspace infiltrate. No pulmonary edema. Calcified pulmonary granuloma in the right upper lobe consistent with chronic sequelae of prior granulomatous disease. Pleural spaces: No pneumothorax. No pleural effusion. Heart: No cardiomegaly. No significant pericardial effusion. RV/LV ratio is 1.17, concerning for right heart strain. Coronary arteries: No evidence of calcific coronary artery disease. Lymph nodes: Calcified right hilar lymph nodes consistent with chronic sequelae of prior granulomatous disease. No pathologically enlarged lymph nodes by imaging criteria. Bones/joints: No acute osseous abnormality. Soft tissues: Unremarkable. IMPRESSION: Multiple (the on the order of 10-15) pulmonary emboli scattered throughout the bilateral segmental and subsegmental pulmonary arteries, lower lobe predominant. RV/LV ratio is 1.17, concerning for right heart strain. No evidence of pulmonary infarction.
[2023-06-08 14:57] LABS: Troponin I < 0.01 ng/ml (0.00-0.034)
[2023-06-08 15:03] LABS: D-Dimer 1.69 ug/mL (0.0-0.5)
[2023-06-08 15:06] LABS: Lactic Acid 1.5 mmol/L (0.7-2.1)
[2023-06-08] MEDS: 0.9 % SODIUM CHLORIDE 50 ML VIAL IV (15:13)
--- NOTE | 2023-06-08 15:14 | PC.NURSE ---
Pt gone to RAD
[2023-06-08] MEDS: IOPAMIDOL-370 (76%);100ML BOTTLE 75 ML IV (15:15)
[2023-06-08] MEDS: SODIUM CHLORIDE 0.9% 10ML SYR (RAD ONLY) 10 ML IV (15:15)
--- NOTE | 2023-06-08 15:16 | PC.NURSE ---
Pt returned to room from RAD
[2023-06-08] MEDS: ENOXAPARIN 100MG/ML SYRINGE 120 MG SQ (15:38)
--- NOTE | 2023-06-08 16:10 | PC.NURSE ---
pt admitted to room 202 for multiple PEs; admitted to hospitalist and observation status
--- NOTE | 2023-06-08 16:15 | PC.NURSE ---
va refusal form faxed to number provided
--- NOTE | 2023-06-08 16:27 | PC.NURSE ---
report called to Sebastian TIWARI
--- NOTE | 2023-06-08 16:36 | PC.NURSE ---
arrived by w/c from ED
--- NOTE | 2023-06-08 18:02 | P.HP_ITS ---
History of Present Illness *Admission Date: 06/08/23 *Reason for visit:: headache *History of present illness: Patient is a 38-year-old male without significant past medical history who presented to hospital due to severe headache as well as left leg pain. According to patient he was recently diagnosed with DVT, he has been on Xarelto, he called his PCP office and was recommended to come to the emergency department for evaluation. Patient otherwise denied fever chills diarrhea constipation dysuria. Patient had CT chest performed in the ED and it did show multiple pulmonary emboli, no evidence of right heart strain. [facility] Disclaimer: The information contained in this section may have been updated after the patient was seen, as this information can be updated by other users. Medical History (Updated 06/08/23 @ 18:04 by Aj Dunaway MD) Blood clot in leg Family History (Updated 06/08/23 @ 16:48 by Luanne Martinez RN) Other Family history of diabetes mellitus type II Social History (Updated 06/08/23 @ 16:49 by Luanne Martinez RN) Smoking Status: Current every day smoker alcohol intake: never current occupational status: employed and unemployed Travel in the last 8 weeks: None Review of Systems Review of Systems Review of systems (narrative): as per [facility] Meds Home Medications and Allergies Home Medications Medication Instructions Recorded Confirmed Type azithromycin 250 mg tablet 250 mg PO UD DOSE PK #6 tabs 04/14/20 Rx cefdinir 300 mg capsule 300 mg PO BID #14 caps 09/12/21 Rx amoxicillin 875 mg-potassium 1 tab PO BID 7 days #14 tabs 05/21/23 Rx clavulanate 125 mg tablet prednisone 20 mg tablet 40 mg PO DAILY 5 days #10 tabs 05/21/23 Rx New Prescriptions to Start Prescriptions: Allergies Allergy/AdvReac Type Severity Reaction Status Date / Time No Known Allergies Allergy Verified 06/08/23 14:30 Exam Data for Last 24 hours Vital signs and Labs for Last 24 Hours: Temp Pulse Resp BP Pulse Ox O2 Del Method 98.4 F 93 H 19 124/78 95 Room Air 06/08/23 16:39 06/08/23 16:39 06/08/23 16:39 06/08/23 16:39 06/08/23 17:56 06/08/23 17:56 Laboratory Results - last 24 hr 06/08/23 14:20: WBC 8.7, RBC 4.73, Hgb 15.5, Hct 45.3, MCV 95.8 H, MCH 32.8 H, MCHC 34.2, RDW 13.2, Plt Count 207, MPV 9.0, Neut % (Auto) 57.2, Lymph % (Auto) 31.1, [place] % (Auto) 8.5, Eos % (Auto) 2.3, Baso % (Auto) 0.9, Neut # (Auto) 5.0, Lymph # (Auto) 2.7, [place] # (Auto) 0.7, Eos # (Auto) 0.2, Baso # (Auto) 0.1, PT 10.5, INR 0.97, D-Dimer 1.69 H, Sodium 139, Potassium 4.0, Chloride 106, Carbon Dioxide 23, Anion Gap 14.0, BUN 13, Creatinine 0.80, Estimated Creat Clear 205, Estimated GFR 107, Est GFR ( Amer) 130, Glucose 150 H, Calcium 9.2, Total Bilirubin 0.4, AST 34, ALT 44, Alkaline Phosphatase 68, Troponin I < 0.01, Total Protein 7.4, Albumin 4.2, Globulin 3.2, Albumin/Globulin Ratio 1.3 06/08/23 14:22: SARS-CoV-2 (PCR) Not detected, Influenza A Untype (PCR) Not detected, Influenza Type B (PCR) Not detected 06/08/23 14:45: Lactate 1.5 I & O for Last 24 hours: Intake & Output 06/05/23 06/06/23 06/07/23 06/08/23 23:59 23:59 23:59 23:59 Intake Total 470 / 470 Balance 470 / 470 Weight 109.372 kg Constitutional Constitutional: no acute distress *Routine HEENT Exam Head: Present normocephalic Eye: Present EOMI and PERRL ENT: Present mucous membranes moist *Routine Neck Exam Neck: Present supple; Absent lymphadenopathy *Routine Respiratory Exam Respiratory: Present CTA bilaterally *Routine Cardiovascular Exam Cardiovascular: Present RRR *Routine Abdominal Exam Abdominal: Present soft and normoactive bowel sounds; Absent tenderness *Routine Rectal Exam Rectal:: deferred *Routine Genitalia Exam Genitalia:: deferred *Routine Extremities Exam Extremities: Absent cyanosis or clubbing Comments: LLE is more swollen than R *Routine Skin Exam Skin: Present warm; Absent rash *Routine Neurological Exam Neurological: Present alert and oriented X3 Assessment and Plan *Assessment and plan (1) Multiple pulmonary emboli: Status: Acute Category: Medical Code(s): I26.99 - Other pulmonary embolism without acute cor pulmonale (2) DVT (deep venous thrombosis): Status: Acute Category: Medical Code(s): I82.409 - Acute embolism and thrombosis of unspecified deep veins of unspecified lower extremity Plan Patient is a 38-year-old male without significant past medical history who presented to hospital due to severe headache as well as left leg pain. According to patient he was recently diagnosed with DVT, he has been on Xarelto, he called his PCP office and was recommended to come to the emergency department for evaluation. Patient otherwise denied fever chills diarrhea constipation dysuria. Patient had CT chest performed in the ED and it did show multiple pulmonary emboli, no evidence of right heart strain. Assessment and plan Bilateral pulmonary emboli-unprovoked DVT left leg Pleuritic chest pain CTA chest positive for pulmonary emboli Started on Lovenox Patient wants to try oral Eliquis in place of Xarelto at discharge Check echocardiogram Cardiology was consulted from emergency department-continue Check PT/INR Follow-up with hematology as outpatient DVT PPx - on lovenox
[2023-06-08 18:12] LABS: Troponin I < 0.01 ng/ml (0.00-0.034)
--- NOTE | 2023-06-08 19:04 | PC.NURSE ---
patient alert and oriented x4. denies chest pain and shortness of breath since arriving to the floor. no c/o headache since arriving to the floor. breath sounds are diminished bilaterally. patient resting, call light within reach.
[2023-06-08 22:10] LABS: Troponin I < 0.01 ng/ml (0.00-0.034)
[2023-06-09] VITALS: BP 113/69; PULSE 68; RESP 18; TEMP 36.9; O2SAT 95
[2023-06-09 04:00] VITALS: BP 100/49; PULSE 76; RESP 18; TEMP 36.9; O2SAT 94; BMI 38.9
[2023-06-09] MEDS: ENOXAPARIN 100MG/ML SYRINGE 110 MG SQ (05:03)
[2023-06-09] MEDS: KETOROLAC 30MG/ML VIAL 30 MG IV (05:07)
--- NOTE | 2023-06-09 05:21 | PC.NURSE ---
A&Ox4. Pt has rested throughout the shift. Pt complained of pain 1 time, treated per jun. Right upper lobe diminished. Room air. No complaints of chest pain, soa, or headache. Call light in reach.
[2023-06-09 06:10] LABS: Basophils # 0.1 K/mm3 (0-0.2); Basophils % 0.8 % (0.1-2.0); Eosinophils # 0.2 K/mm3 (0.0-0.4); Eosinophils % 2.3 % (0.1-12.0); Hematocrit 42.2 % (42.0-52.0); Hemoglobin 14.4 g/dL (14.1-18.0); Lymphocytes # 2.4 K/mm3 (0.7-4.5); Lymphocytes % 35.8 % (10-50); Mean Corpuscular Hemoglobin 32.7 pg (27.0-31.2); Mean Corpuscular Volume 96.3 fl (80-94); Mean Platelet Volume 9.5 fl (7.4-10.4); Monocytes # 0.5 K/mm3 (0.1-1.0); Monocytes % 7.7 % (1.7-9.3); Neutrophils # 3.6 K/mm3 (1.8-7.8); Neutrophils % 53.4 % (37.0-80.0); Platelet Count 187 K/mm3 (142-424); Red Blood Count 4.39 M/mm3 (4.60-6.20); Red Cell Distribution Width 13.3 % (11.5-17.5); White Blood Count 6.7 K/mm3 (4.8-10.8)
[2023-06-09 06:22] LABS: Blood Urea Nitrogen 16 mg/dl (9-20); Calcium 9.2 mg/dl (8.4-10.2); Carbon Dioxide 28 mmol/L (22.0-30.0); Chloride 108 mmol/L (98-107); Creatinine Clearance Estimated 173 mL/min (50-200); Estimated Glomerular Filt Rate 93 ml/min (>60); GFR (African American) 113 ML/MIN (>60); Glucose 119 mg/dl (74-100); Sodium 139 mmol/L (136-145)
[2023-06-09 06:28] VITALS: BP 115/71; PULSE 82; RESP 16; TEMP 36.6; O2SAT 94
[2023-06-09 08:00] VITALS: BP 132/74; PULSE 82; RESP 18; TEMP 36.4; O2SAT 94
--- NOTE | 2023-06-09 08:00 | HMH.PHAINT1 ---
Pharmacy Intervention Comments: Verified with patient taking no home medications; pt did state that he was put on rivaroxaban for DVT treatment but stopped taking it after 3-4 days because it gave him a headache.
--- NOTE | 2023-06-09 09:05 | CA_ITS ---
APPROVED REPORT EXAM: Comprehensive 2D, Doppler, and color-flow Echocardiogram Nib Finisher: Emeli Andres CRT Ht: 5 ft 7 in Wt: 241lbs BSA: 2.19 BP: 172/70 mmHg Indications: MULTIPLE PE'S, bilateral DVT'S legs, clot in leg 10yrs ago after ankle fx 2D Dimensions LA Volume 35.10 mL LA Volume Index 15.70 mL/m2 (M/F) 16-34 M-Mode Dimensions RVDd 3.00 cm (0.9-2.6) LA Diam 3.47 cm (1.9-4.0) LVDd 4.50 cm (3.5-5.7) LVDs 2.61 cm (3.5-5.7) IVSd 1.71 cm (0.6-1.1) PWd 1.14 cm (0.6-1.1) EF (Teich) 73.20% FS 42.00% EDV (Teich) 92.40 mL TAPSE 1.96 (<1.7) ESV (Teich) 24.80 mL LV Diastology E Decel Time 150 (160-240 msec) E/A Ratio 0.81 MED A' 9.30 cm/s LAT A' 9.60 cm/s Aortic Valve AO Peak GR. 6.20 mmHg Mitral Valve MV A Velocity 73.0 (40-130 cm/s) E/A Ratio 0.81 Pulmonary Valve PV Peak Velocity 104.0 (50-150 cm/s) Tricuspid Valve TR P. Velocity 216.00 cm/s RAP Estimate 10.00 mmHg RVSP 28.60 mmHg Left Ventricle The left ventricle is normal size. The left ventricular systolic function is normal. The left ventricular ejection fraction is within the normal range. There is increased LV wall thickness. There is normal LV segmental wall motion. The left ventricular diastolic function is normal. LVEF is 55%. Right Ventricle The right ventricle is mildly dilated. Right ventricle is mildly hypokinetic. Atria The left atrium size is normal. The right atrium size is normal. There is no evidence of interatrial shunt. Aortic Valve The aortic valve opens well. There is no aortic valvular stenosis. No aortic regurgitation is present. Mitral Valve The mitral valve is normal in structure. No evidence of mitral valve stenosis. No Mitral Regurgitation. Tricuspid Valve The tricuspid valve leaflets are thin and pliable. Trace tricuspid regurgitation. There is insufficient TR jet to estimate RVSP. Pulmonic Valve The pulmonary valve is normal in structure. Trace pulmonic regurgitation. Great Vessels The aortic root is normal in size. The ascending aorta is normal in size. IVC is normal in size and collapses >50% with inspiration. Pericardium There is no pericardial effusion. Other Information Study Quality: Fair Conclusion Normal LV systolic function. Mild RV dilation with mild reduction in RV function. No significant valvular stenosis or regurgitation. Electronically signed by : Claudia Dave MD 06/10/2023 11:02:16
--- NOTE | 2023-06-09 13:07 | EXP.EVENT.NO ---
I was informed by RN, patient is requesting not to be seen by hospitalist physician, patient was not seen/evaluated by myself. I am available if patient changes his mind.
--- NOTE | 2023-06-09 13:57 | P.CONCA_ITS ---
History of Present Illness History of Present Illness Consult date: 06/09/23 Requesting physician: Aj Dunaway Chief complaint: headache and left leg pain History of present illness: This is a 38-year-old white gentleman who presented to the emergency department with complaints of leg pain and headache. The patient had previously been diagnosed with bilateral lower extremity DVTs by the [facility] and started on Xarelto. The patient states that the Xarelto was making his head hurt. He did call the [facility] and states he was told to stop the Xarelto and they were calling in different medication for him. He states that he stopped taking the Xarelto on Friday but never received another medication to take. He states that his headache went away on Friday but then on Friday his headache recurred even though he had already stopped the Xarelto. He states that he was having left leg pain in the upper thigh area. He states that this was a burning sensation. He states that he also has a little bit of shortness of breath with exertion. He states that this is mild and not really changed much from his baseline. He denies any chest pain or pressure. He denies any fever, chills, nausea, vomiting, diarrhea, PND or orthopnea. The patient did present to the emergency department here because of the headache and leg pain. He had a CT of the chest which showed multiple subsegmental and segmental pulmonary emboli with evidence concerning for right heart strain. [facility] Disclaimer: The information contained in this section may have been updated after the patient was seen, as this information can be updated by other users. Medical History (Updated 06/09/23 @ 14:01 by Kylah Hodgson APRN) Blood clot in leg SOB (shortness of breath) on exertion Family History (Updated 06/08/23 @ 16:48 by Luanne Martinez RN) Other Family history of diabetes mellitus type II Social History (Updated 06/08/23 @ 16:49 by Luanne Martinez RN) Smoking Status: Current every day smoker alcohol intake: never current occupational status: employed and unemployed Travel in the last 8 weeks: None Review of Systems Review of Systems Review of systems:: pertinent systems reviewed and negative unless documented below Constitutional Constitutional: Reports system reviewed and no additional complaints, except as documented and Reports headache(s) Eyes Eyes: Reports system reviewed and no additional complaints, except as documented ENT Ears, Nose, Mouth, and Throat: Reports system reviewed and no additional complaints, except as documented and Reports headache(s) *Cardiovascular Cardiovascular: Reports system reviewed and no additional complaints, except as documented and Reports dyspnea on exertion *Respiratory Respiratory: Reports system reviewed and no additional complaints, except as documented and Reports dyspnea on exertion *Gastrointestinal Gastrointestinal: Reports system reviewed and no additional complaints, except as documented *Genitourinary Genitourinary: Reports system reviewed and no additional complaints, except as documented *Musculoskeletal Musculoskeletal: Reports system reviewed and no additional complaints, except as documented Comments: Left upper leg pain. swelling in BLEs. Integumentary/Breasts Skin/Breast: Reports system reviewed and no additional complaints, except as documented *Neurologic Neurologic: Reports system reviewed and no additional complaints, except as documented and Reports headache(s) Psychiatric Psychiatric: Reports system reviewed and no additional complaints, except as documented Endocrine Endocrine: Reports system reviewed and no additional complaints, except as documented Hematologic/Lymphatic Hematologic/Lymphatic: Reports system reviewed and no additional complaints, except as documented Allergic/Immunologic Allergic/Immunologic: Reports system reviewed and no additional complaints, except as documented Exam Data for Last 24 hours Vital signs and Labs for Last 24 Hours: Temp Pulse Resp BP Pulse Ox O2 Del Method 97.5 F L 82 18 132/74 94 L Room Air 06/09/23 08:00 06/09/23 08:00 06/09/23 08:00 06/09/23 08:00 06/09/23 08:00 06/09/23 13:00 Laboratory Results - last 24 hr 06/08/23 14:20: WBC 8.7, RBC 4.73, Hgb 15.5, Hct 45.3, MCV 95.8 H, MCH 32.8 H, MCHC 34.2, RDW 13.2, Plt Count 207, MPV 9.0, Neut % (Auto) 57.2, Lymph % (Auto) 31.1, Jack % (Auto) 8.5, Eos % (Auto) 2.3, Baso % (Auto) 0.9, Neut # (Auto) 5.0, Lymph # (Auto) 2.7, Jack # (Auto) 0.7, Eos # (Auto) 0.2, Baso # (Auto) 0.1, PT 10.5, INR 0.97, D-Dimer 1.69 H, Sodium 139, Potassium 4.0, Chloride 106, Carbon Dioxide 23, Anion Gap 14.0, BUN 13, Creatinine 0.80, Estimated Creat Clear 205, Estimated GFR 107, Est GFR ( Amer) 130, Glucose 150 H, Calcium 9.2, Total Bilirubin 0.4, AST 34, ALT 44, Alkaline Phosphatase 68, Troponin I < 0.01, Total Protein 7.4, Albumin 4.2, Globulin 3.2, Albumin/Globulin Ratio 1.3 06/08/23 14:22: SARS-CoV-2 (PCR) Not detected, Influenza A Untype (PCR) Not detected, Influenza Type B (PCR) Not detected 06/08/23 14:45: Lactate 1.5 06/08/23 17:40: Troponin I < 0.01 06/08/23 20:25: Troponin I < 0.01 06/09/23 05:44: WBC 6.7, RBC 4.39 L, Hgb 14.4, Hct 42.2, MCV 96.3 H, MCH 32.7 H, MCHC 34.0, RDW 13.3, Plt Count 187, MPV 9.5, Neut % (Auto) 53.4, Lymph % (Auto) 35.8, Jack % (Auto) 7.7, Eos % (Auto) 2.3, Baso % (Auto) 0.8, Neut # (Auto) 3.6, Lymph # (Auto) 2.4, Jack # (Auto) 0.5, Eos # (Auto) 0.2, Baso # (Auto) 0.1, Sodium 139, Potassium 4.0, Chloride 108 H, Carbon Dioxide 28, Anion Gap 7.0, BUN 16, Creatinine 0.90, Estimated Creat Clear 173, Estimated GFR 93, Est GFR ( Amer) 113, Glucose 119 H D, Calcium 9.2 I & O for Last 24 hours: Intake & Output 06/06/23 06/07/23 06/08/23 06/09/23 23:59 23:59 23:59 23:59 Intake Total 470 / 470 600 / 600 Output Total 0 / 0 0 / 0 Balance 470 / 470 600 / 600 Weight 241 lb 2 oz 247 lb 12.793 oz Constitutional Constitutional: no acute distress and obese *Routine HEENT Exam Head: Present normocephalic and atraumatic ENT: Present mucous membranes moist *Routine Neck Exam Neck: Present supple, full ROM and normal carotid upstroke; Absent JVD, carotid bruit or lymphadenopathy *Routine Respiratory Exam Respiratory: Present CTA bilaterally, normal respiratory effort, able to speak in complete sentences and symmetric chest movement *Routine Cardiovascular Exam Cardiovascular: Present RRR, Normal S1 and Normal S2; Absent murmur or gallop *Routine Abdominal Exam Abdominal: Present soft and normoactive bowel sounds; Absent tenderness, distended or organomegaly *Routine Extremities Exam Extremities: Present full ROM, pulses intact and normal capillary refill; Absent cyanosis, clubbing or edema *Routine Skin Exam Skin: Present intact and warm; Absent erythema *Routine Neurological Exam Neurological: Present alert, oriented X3 and CN II-XII intact; Absent sensory d eficit or motor deficit Routine Psychiatric Exam Psychiatric: Present normal affect Meds Home Medications and Allergies Home Medications Medication Instructions Recorded Confirmed Type No Known Home Medications 06/08/23 06/08/23 History New Prescriptions to Start Prescriptions: Allergies Allergy/AdvReac Type Severity Reaction Status Date / Time No Known Allergies Allergy Verified 06/08/23 14:30 Assessment and Plan *Assessment and plan (1) Multiple pulmonary emboli: Status: Acute Category: Medical Code(s): I26.99 - Other pulmonary embolism without acute cor pulmonale (2) DVT (deep venous thrombosis): Status: Acute Qualifiers: DVT location: lower extremity Affected thrombotic vein of extremity: unspecified vein of extremity Chronicity: acute Laterality: bilateral Qualified Code(s): I82.403 - Acute embolism and thrombosis of unspecified deep veins of lower extremity, bilateral Category: Medical Code(s): I82.409 - Acute embolism and thrombosis of unspecified deep veins of unspecified lower extremity (3) SOB (shortness of breath) on exertion: Status: Acute Category: Medical Code(s): R06.02 - Shortness of breath Plan Plan: 1. The patient was admitted for multiple bilateral subsegmental and segmental pulmonary emboli. These are unprovoked. He does also have DVTs in his bilateral lower extremities. [facility] but this caused a headache and the patient stopped taking the medication. He states that another medication was post to be sent in for him to his pharmacy but he never received it. He is currently getting Lovenox injections for anticoagulation. Will switch the patient over to Eliquis 5 mg p.o. twice daily. 2. The CTA of the chest did show some concerns for possible right heart strain. Echocardiogram today shows a normal ejection fraction with mild RV dilatation. No evidence of significant right heart strain shown on echocardiogram so no plans for embolectomy today. 3. His blood pressure is well-controlled. 4. His LDL goal is less than 100. 5. The patient would benefit from a hematology referral on an outpatient basis due to his unprovoked DVT/PEs. 6. No further recommendations at this time from a cardiac standpoint. The patient is stable for discharge home today with Eliquis 5 mg p.o. twice daily for DVT/PE. Thank you for the opportunity to participate in the care of this patient. All recommendations and orders are per Dr. Dave.
--- NOTE | 2023-06-09 14:52 | P.DS_ITS ---
General Admission date:: 06/08/23 Discharge date: 06/09/23 HPI HPI HPI: Patient is a 38-year-old male without significant past medical history who presented to hospital due to severe headache as well as left leg pain. According to patient he was recently diagnosed with DVT, he has been on Xarelto, he called his PCP office and was recommended to come to the emergency department for evaluation. Patient otherwise denied fever chills diarrhea constipation dysuria. Patient had CT chest performed in the ED and it did show multiple pulmonary emboli, no evidence of right heart strain. Hospital Course Hospital Course Hospital Course: Patient is a 38-year-old male without significant past medical history who presented to hospital due to severe headache as well as left leg pain. According to patient he was recently diagnosed with DVT, he has been on Xarelto, he called his PCP office and was recommended to come to the emergency department for evaluation. Patient otherwise denied fever chills diarrhea constipation dysuria. Patient had CT chest performed in the ED and it did show multiple pulmonary emboli, no evidence of right heart strain. Assessment and plan Bilateral pulmonary emboli-unprovoked DVT left leg Pleuritic chest pain no RV starin on Echo Cardiology evaluated patient and recommneds dc on Eliquis follow up with cardiology at [facility] patient was not evaluated/examined by myself as patient refused to be seen Exam Data for Last 24 hours Vital signs and Labs for Last 24 Hours: Temp Pulse Resp BP Pulse Ox O2 Del Method 97.5 F L 82 18 132/74 94 L Room Air 06/09/23 08:00 06/09/23 08:00 06/09/23 08:00 06/09/23 08:00 06/09/23 08:00 06/09/23 14:47 Laboratory Results - last 24 hr 06/08/23 14:20: D-Dimer 1.69 H, Troponin I < 0.01 06/08/23 14:22: SARS-CoV-2 (PCR) Not detected, Influenza A Untype (PCR) Not detected, Influenza Type B (PCR) Not detected 06/08/23 14:45: Lactate 1.5 06/08/23 17:40: Troponin I < 0.01 06/08/23 20:25: Troponin I < 0.01 06/09/23 05:44: WBC 6.7, RBC 4.39 L, Hgb 14.4, Hct 42.2, MCV 96.3 H, MCH 32.7 H, MCHC 34.0, RDW 13.3, Plt Count 187, MPV 9.5, Neut % (Auto) 53.4, Lymph % (Auto) 35.8, [place] % (Auto) 7.7, Eos % (Auto) 2.3, Baso % (Auto) 0.8, Neut # (Auto) 3.6, Lymph # (Auto) 2.4, [place] # (Auto) 0.5, Eos # (Auto) 0.2, Baso # (Auto) 0.1, Sodium 139, Potassium 4.0, Chloride 108 H, Carbon Dioxide 28, Anion Gap 7.0, BUN 16, Creatinine 0.90, Estimated Creat Clear 173, Estimated GFR 93, Est GFR ( Amer) 113, Glucose 119 H D, Calcium 9.2 I & O for Last 24 hours: Intake & Output 06/06/23 06/07/23 06/08/23 06/09/23 23:59 23:59 23:59 23:59 Intake Total 470 / 470 600 / 600 Output Total 0 / 0 0 / 0 Balance 470 / 470 600 / 600 Weight 109.372 kg 112.4 kg Results Data Completed and Pending Labs on day of discharge: Labs from last 24 hours 06/09/23 06/08/23 06/08/23 05:44 20:25 17:40 WBC 6.7 RBC 4.39 L Hgb 14.4 Hct 42.2 MCV 96.3 H MCH 32.7 H MCHC 34.0 RDW 13.3 Plt Count 187 MPV 9.5 Neut % (Auto) 53.4 Lymph % (Auto) 35.8 [place] % (Auto) 7.7 Eos % (Auto) 2.3 Baso % (Auto) 0.8 Neut # (Auto) 3.6 Lymph # (Auto) 2.4 [place] # (Auto) 0.5 Eos # (Auto) 0.2 Baso # (Auto) 0.1 D-Dimer Sodium 139 Potassium 4.0 Chloride 108 H Carbon Dioxide 28 Anion Gap 7.0 BUN 16 Creatinine 0.90 Estimated Creat Clear 173 Estimated GFR 93 Est GFR ( Amer) 113 Glucose 119 H D Lactate Calcium 9.2 Troponin I < 0.01 < 0.01 SARS-CoV-2 (PCR) Influenza A Untype (PCR) Influenza Type B (PCR) 06/08/23 06/08/23 06/08/23 14:45 14:22 14:20 WBC RBC Hgb Hct MCV MCH MCHC RDW Plt Count MPV Neut % (Auto) Lymph % (Auto) [place] % (Auto) Eos % (Auto) Baso % (Auto) Neut # (Auto) Lymph # (Auto) [place] # (Auto) Eos # (Auto) Baso # (Auto) D-Dimer 1.69 H Sodium Potassium Chloride Carbon Dioxide Anion Gap BUN Creatinine Estimated Creat Clear Estimated GFR Est GFR ( Amer) Glucose Lactate 1.5 Calcium Troponin I < 0.01 SARS-CoV-2 (PCR) Not detected Influenza A Untype (PCR) Not detected Influenza Type B (PCR) Not detected DS: Diagnosis Discharge Diagnosis (1) Multiple pulmonary emboli: Status: Acute Code(s): I26.99 - Other pulmonary embolism without acute cor pulmonale (2) DVT (deep venous thrombosis): Status: Acute Code(s): I82.409 - Acute embolism and thrombosis of unspecified deep veins of unspecified lower extremity Qualifiers: DVT location: lower extremity Affected thrombotic vein of extremity: unspecified vein of extremity Chronicity: acute Laterality: bilateral Qualified Code(s): I82.403 - Acute embolism and thrombosis of unspecified deep veins of lower extremity, bilateral (3) SOB (shortness of breath) on exertion: Status: Acute Code(s): R06.02 - Shortness of breath Meds Home Medications and Allergies Home Medications Medication Instructions Recorded Confirmed Type No Known Home Medications 06/08/23 06/08/23 History New Prescriptions to Start Prescriptions: Allergies Allergy/AdvReac Type Severity Reaction Status Date / Time No Known Allergies Allergy Verified 06/08/23 14:30 Discharge Plan Disposition Patient Disposition: Home, Self-Care Condition: Fair Follow up Plan Follow up with: Provider,ReferralMD [Primary Care Provider] - See instructions Prescriptions/Medication Reconciliation: No Action No Known Home Medications Problem Reconciliation Problems Reviewed?: Yes Patient Discharge Instructions ACTIVITY: Ambulate as tolerated DIET: continue same diet Patient Instructions: DI for Deep Vein Thrombosis, DI for Pulmonary Embolism Providers Primary Care Provider: Provider,Referral Admit Provider: Aj Dunaway Attending Provider: Aj Dunaway
--- NOTE | 2023-06-10 14:12 | CARE MANAGER ---
Called and spoke with patient regarding recent discharge. Patient stated that he has started new medication. He stated that he thought he needed a f/u with cardiology, so I forwarded call to their office for appointment can be made. Patient had no concerns/questions at time of call.
== END 2023-06-09 16:04 | disposition home or self-care (01) ==
LOC: ER 16:09 → 2ND 16:30
PROVIDERS: Physician Assistant; Admitting Provider Internal Medicine; Emergency Provider Emergency Medicine; Visit Provider Internal Medicine
DX: I26.99 Other pulmonary embolism without acute cor pulmonale (principal); I82.403 Acute embolism and thrombosis of unspecified deep veins of lower extremity, bilateral
CPT/HCPCS: 36415; 71275; 80048; 80053; 83605; 84484; 85025; 85378; 85610; 87636; 93005; 93306; 99291; G0378; J0131; Q9967

== ENCOUNTER 2023-07-24 10:50 | Outpatient (CLI) | payer OTHER, SELFPAY ==
[2023-07-24 11:26] LABS: Basophils # 0.1 K/mm3 (0-0.2); Basophils % 0.7 % (0.1-2.0); Eosinophils # 0.2 K/mm3 (0.0-0.4); Hematocrit 48.7 % (42.0-52.0); Hemoglobin 15.9 g/dL (14.1-18.0); Lymphocytes # 2.5 K/mm3 (0.7-4.5); Lymphocytes % 27.2 % (10-50); Mean Corpuscular HGB Conc 32.7 g/dL (31.8-35.4); Mean Corpuscular Volume 97.7 fl (80-94); Mean Platelet Volume 9.5 fl (7.4-10.4); Monocytes # 0.7 K/mm3 (0.1-1.0); Neutrophils # 5.8 K/mm3 (1.8-7.8); Neutrophils % 63.1 % (37.0-80.0); Platelet Count 201 K/mm3 (142-424); Red Blood Count 4.99 M/mm3 (4.60-6.20); Red Cell Distribution Width 14.1 % (11.5-17.5); White Blood Count 9.3 K/mm3 (4.8-10.8)
[2023-07-24 11:52] LABS: Chloride 110 mmol/L (98-107); Potassium 4.2 mmoL/L (3.5-5.1); Sodium 140 mmol/L (136-145)
[2023-07-24 11:54] LABS: Alanine Aminotransferase 71 U/L (12-78); Aspartate Amino Transferase 44 U/L (17-59); Bilirubin,Unconjugated 0.4 mg/dL (0.0-1.1); Blood Urea Nitrogen 9 mg/dl (9-20); Estimated Glomerular Filt Rate 107 ml/min (>60); GFR (African American) 130 ML/MIN (>60)
[2023-07-24 11:55] LABS: Albumin Level 4.1 g/dl (3.5-5.0); Alkaline Phosphatase 55 U/L (38-126); Anion Gap 8.2 mEq/L (5-15); Bilirubin,Direct 0.3 mg/dl (0.0-0.4); Bilirubin,Indirect 0.4 mg/dL (0.0-0.9); Bilirubin,Total 0.7 mg/dl (0.2-1.3); Calcium 9.7 mg/dl (8.4-10.2); Carbon Dioxide 26 mmol/L (22.0-30.0); Chol/HDL Ratio 6.2 (1-3.5); Cholesterol 193 mg/dl (140-200); Glucose 107 mg/dl (74-100); HDL Cholesterol 31 mg/dl (40-60); Total Protein,Serum 6.5 g/dl (6.3-8.2); Triglycerides 227 mg/dl (30-150); VLDL Cholesterol 45 mg/dL (0-40)
[2023-07-24 12:06] LABS: Direct LDL Cholesterol 113.91 mg/dL (100-129)
[2023-07-24 12:12] LABS: Thyroid Stimulating Hormone 1.39 uIU/mL (0.465-4.68)
[2023-07-24 14:27] LABS: Free T4 (Free Thyroxine) 1.04 ng/dl (0.78-2.19)
== END 2023-07-24 23:59 | disposition home or self-care (01) ==
LOC: LAB 10:51
PROVIDERS: Visit Provider Nurse Practitioner
DX: R06.00 Dyspnea, unspecified (principal); I11.9 Hypertensive heart disease without heart failure; I82.403 Acute embolism and thrombosis of unspecified deep veins of lower extremity, bilateral; I26.99 Other pulmonary embolism without acute cor pulmonale; E11.9 Type 2 diabetes mellitus without complications; K21.9 Gastro-esophageal reflux disease without esophagitis
CPT/HCPCS: 36415; 80048; 80061; 80076; 84439; 84443; 85025

== ENCOUNTER 2023-07-31 06:14 | Outpatient (CLI) | payer OTHER, SELFPAY ==
--- NOTE | 2023-07-31 06:17 | NM_ITS ---
APPROVED REPORT Exam: Nuclear Stress Test Indication: soa..blood clots Patient Location: Outpatient Stress Tech: Muriel Christian PA Tech:Nicole Gaffney ETHANChitra RT(R)(N) Ht: 5 ft 10 in Wt: 255 lbs HR: 76 bpm BP: 118/81 mmHg BSA: 2.31 m2 TID: 1.02 BMI: 36.5 History: soa..blood clots Procedure: Patient exercised on Nick protocol 9:16 minutes and sec, resting heart rate 76 bpm, resting blood pressure 118/81 mmHg, with exercise maximum heart rate achived was 154 bpm which is 86 % of the maximum predicted heart rate and blood pressure was 183/85 mmHg. Test was stopped due to fatigue. Patient denied any complaint of chest pain. Patient has average exercise capacity, achieved 10.1 METs of workload on treadmill, the blood pressure response to exercise was normal. Cardiac Stress and Resting SPECT Images: Cardiac Stress and Resting SPECT images were obtained using technetium 99m Myoview 32.0 mCi stress and 10.62 mCi at rest. Resting and stress imaging in supine and prone positions demonstrate no evidence of fixed or reversible perfusion defects. Gated imaging demonstrates normal global and regional LV systolic function. LVEF is calculated at 59%. Conclusion: No evidence of fixed or reversible perfusion defects. Gated imaging demonstrates normal global and regional LV systolic function. LVEF is calculated at 59%. Electronically signed by : Claudia Dave MD 08/04/2023 12:47:01
--- NOTE | 2023-07-31 09:24 | CA_ITS ---
APPROVED REPORT Exam: Pharmacologic Technologist: Muriel Haque, Ht: 5 ft 9 in Wt: 255 lbs BSA: 2.29 m2 HR: 68 bpm BP: 115/79 mmHg Rhythm: NSR Medical History Medications: ElIQUIS,,,,, Stress Test Details Test: Nick HR Resting HR: 76 bpm Max Heart Rate (APMHR): 180 bpm Max HR Achieved: 154 bpm Target HR (85% APMHR): 153 bpm % of APMHR: 86 Recovery HR: 93 bpm HR response to stress: Normal HR response to stress BP Resting BP: 118.0/81.0 mmHg Max BP: 183.0/85.0 mmHg Recovery BP: 138.0/90.0 mmHg BP response to stress: Normal blood pressure response to stress. ECG Resting ECG: NSR, LPFB, T wave changes in inferior lateral leads, cannot R/O old inferolateral MT Stress ECG: < 0.[address] depression Arrhythmia: PACs, PVCs, 1 ventricular couplet Clinical Exercise duration: 09:16 min Highest Stage Achieved: III Exercise capacity: 10.1 METs Overall Exercise Capacity for Age: Average Stress ECG Conclusion The patient was able to exercise for a total of 9 minutes, 16 seconds. He achieved a total of 10.1 METS. He has average exercise capacity compared to age and sex matched peers. He has normal HR and BP response to exercise. Max HR: 154 % of PM: 86% Max BP: 183/85 METs: 10.1 Test stopped due to: SOA, leg pain Symptoms: No CP. arrhythmias/Ectopy: PACs, PVCs, [address]-T Changes: Normal ST response to exercise. Conclusion: Normal GXT with decreased sensitivity due to baseline EKG abnormalities. Myoview images reported separately. Test Summary REST . . . . . . . Sitting REST . . . . . . . Standing REST 02:50 0.0 0.0 76 . 118/ 81 . . Stage 1 01:00 10.0 1.7 101 . . . . Stage 1 02:00 10.0 1.7 108 . . . . Stage 1 03:00 10.0 1.7 114 . 150/ 80 . . Stage 2 01:00 12.0 2.5 121 . . . . Stage 2 02:00 12.0 2.5 130 . . . . Stage 2 03:00 12.0 2.5 135 . 164/ 76 . . Stage 3 01:00 14.0 3.4 141 . . . . Stage 3 02:00 14.0 3.4 151 . . . . Stage 3 . . . . . . . Myoview Injected Stage 3 . . . . . . . Stage held Stage 3 03:00 14.0 3.4 151 . . . . Stage 3 . . . . . . . Stage resumed Stage 3 03:16 14.0 3.4 151 . . . Stop exercise at 09:16 RECOVERY 01:00 0.0 0.0 133 . . . . RECOVERY 02:00 0.0 0.0 115 . . . . RECOVERY 03:00 0.0 0.0 100 . 183/ 85 . . RECOVERY 04:00 0.0 0.0 91 . 155/ 91 . . RECOVERY 05:00 0.0 0.0 94 . 138/ 90 . . RECOVERY 05:16 0.0 0.0 99 . 138/ 90 . . Electronically signed by : Claudia Dave MD 08/04/2023 12:44:11
[2023-07-31] MEDS: SODIUM CHLORIDE 0.9% 10ML SYR (RAD ONLY) 10 ML IV ×2 (10:37)
[2023-07-31] MEDS: ISOTOPE MYOVIEW (PER STUDY) 1 DOSE IV (10:37)
== END 2023-07-31 23:59 | disposition home or self-care (01) ==
LOC: RAD 06:15
PROVIDERS: Visit Provider Nurse Practitioner
DX: R06.00 Dyspnea, unspecified (principal); I82.403 Acute embolism and thrombosis of unspecified deep veins of lower extremity, bilateral; I26.99 Other pulmonary embolism without acute cor pulmonale
CPT/HCPCS: 78452; 93017; 93018; A9502